=== PATIENT | male | born 1990 | race Caucasian/White ===

== ENCOUNTER 2019-01-26 17:43 | Emergency (ER) | payer OTHER ==
[~2019-01-26] VITALS: Ht 180.3 cm; Wt 87.0 kg
[2019-01-26 17:47] VITALS: BP 110/74
== END 2019-01-26 19:31 | disposition home or self-care (01) ==
LOC: ED 18:24
DX: S81.012A Laceration without foreign body, left knee, initial encounter (principal); V29.88XA Motorcycle rider (driver) (passenger) injured in other specified transport accidents, initial encounter; Y93.89 Activity, other specified; Y92.89 Other specified places as the place of occurrence of the external cause; Y99.8 Other external cause status
CPT/HCPCS: 12032; 90471; 90715

== ENCOUNTER 2019-02-04 11:10 | Emergency (ER) | payer OTHER ==
[~2019-02-04] VITALS: Ht 180.3 cm; Wt 89.2 kg
[2019-02-04 11:12] VITALS: BP 123/77
[2019-02-04] MEDS ORDERED: NEOSPORIN OINT. PKT 1 PACKET ONE (11:45)
--- NOTE | 2019-02-04 11:52 | NUR ---
PT HAS STITCHES ON KNEE. HERE FOR ABX.
--- NOTE | 2019-02-04 11:53 | NUR ---
DPatient/Caregiver given discharge instructions and they have confirmed that they understand the instructions. Patient ambulatory with steady gait.
== END 2019-02-04 12:01 | disposition home or self-care (01) ==
LOC: ED 11:41
DX: L03.116 Cellulitis of left lower limb (principal)
CPT/HCPCS: 99283; 99284